=== PATIENT | male | born 1985 | race Two or more races ===

== ENCOUNTER 2021-11-06 20:55 | Inpatient (IN) | payer OTHER ==
[2021-11-06 16:11] VITALS: BMI 27.4
[2021-11-06] MEDS ORDERED: METHOCARBAMOL 500 MG TABLET PO PRN (22:23)
[2021-11-06] MEDS ORDERED: BISMUTH SUBSALICYLATE 524 MG/30 ML PO PRN (22:23)
[2021-11-06] MEDS ORDERED: MAG HYDROX/AL HYDROX/SIMETH 30 ML UNIT-DOSE CUP PO PRN (22:23)
[2021-11-06] MEDS ORDERED: ONDANSETRON *ODT* 4 MG TABLET SL PRN (22:23)
[2021-11-06] MEDS ORDERED: MENTHOL/PHENOL 1 EACH UD MM PRN (22:23)
[2021-11-06] MEDS ORDERED: NICOTINE 10 MG CARTRIDGE (INHALER) IH PRN (22:23)
[2021-11-06] MEDS ORDERED: MAGNESIUM HYDROX 2400MG/30ML ORAL SUSPENSION 30 ML CUP PO PRN (22:23)
[2021-11-06] MEDS ORDERED: ACETAMINOPHEN 325 MG TABLET (FP) PO PRN ×2 (22:23)
[2021-11-06] MEDS ORDERED: IBUPROFEN 400 MG TABLET (FP) PO PRN (22:23)
[2021-11-06] MEDS ORDERED: LOPERAMIDE HCL 2 MG CAPSULE PO PRN (22:23)
[2021-11-06] MEDS ORDERED: MAGNESIUM CITRATE 300 ML BOTTLE PO PRN (22:23)
[2021-11-06] MEDS ORDERED: chlordiazePOXIDE HCL 25 MG CAPSULE PO PRN (22:25)
[2021-11-06] MEDS ORDERED: chlordiazePOXIDE HCL 25 MG CAPSULE ONE (22:31)
[2021-11-06] MEDS ORDERED: hydrOXYzine PAMOATE 25 MG CAPSULE (FP) PO ONE (22:32)
[2021-11-06] MEDS: hydrOXYzine PAMOATE 25 MG CAPSULE (FP) PO PRN (22:36)
[2021-11-06] MEDS: chlordiazePOXIDE HCL 25 MG CAPSULE PO SCH (22:36)
[2021-11-07] MEDS: chlordiazePOXIDE HCL 25 MG CAPSULE PO SCH ×4 (05:06→22:27)
[2021-11-07] MEDS: PRENATAL VITAMINS W/ FOLIC ACID TABLET (FP) PO SCH (10:14)
[2021-11-07 14:35] LABS: HEMATOCRIT 38.5 % (35.4-49); HEMOGLOBIN 13.2 GM/dL (11.7-16.9); MCHC 34.2 g/dl (32.0-35.9); MEAN CELL VOLUME 93.6 fl (80-96); MEAN PLT VOLUME 8.5 fl (7.5-11.1); PLATELET COUNT 249 10^3/uL (134-434); RBC 4.11 M/mm3 (4.00-5.60); RDW 13.1 % (11.9-15.9); WHITE BLOOD COUNT 7.3 K/mm3 (4.0-10.0)
[2021-11-07 14:49] LABS: CALCIUM 9.5 mg/dL (8.5-10.1)
[2021-11-07 14:50] LABS: ALBUMIN 3.9 g/dl (3.4-5.0); BLOOD UREA NITROGEN 8.6 mg/dL (7-18)
[2021-11-07 14:53] LABS: CREATININE 1.1 mg/dL (0.55-1.3)
[2021-11-07 14:54] LABS: BILIRUBIN,TOTAL 0.7 mg/dL (0.2-1)
[2021-11-07] MEDS: MELATONIN 5 MG TABLETS PO SCH (22:27)
[2021-11-07] MEDS: THIAMINE HCL 100 MG TABLET (FP) PO SCH (22:27)
[2021-11-08] MEDS: chlordiazePOXIDE HCL 25 MG CAPSULE PO SCH ×4 (05:33→22:13)
[2021-11-08] MEDS: PRENATAL VITAMINS W/ FOLIC ACID TABLET (FP) PO SCH (10:18)
[2021-11-08] MEDS: MELATONIN 5 MG TABLETS PO SCH (22:13)
[2021-11-08] MEDS: THIAMINE HCL 100 MG TABLET (FP) PO SCH (22:13)
[2021-11-09] MEDS ORDERED: chlordiazePOXIDE HCL 10 MG CAPSULE PO PRN
[2021-11-09] MEDS: chlordiazePOXIDE HCL 10 MG CAPSULE PO SCH ×4 (05:18→22:21)
[2021-11-09] MEDS: PRENATAL VITAMINS W/ FOLIC ACID TABLET (FP) PO SCH (10:06)
[2021-11-09] MEDS: MELATONIN 5 MG TABLETS PO SCH (22:21)
[2021-11-09] MEDS: THIAMINE HCL 100 MG TABLET (FP) PO SCH (22:21)
[2021-11-09] MEDS: hydrOXYzine PAMOATE 25 MG CAPSULE (FP) PO PRN (22:23)
[2021-11-10] MEDS: chlordiazePOXIDE HCL 10 MG CAPSULE PO SCH ×2 (05:22→17:46)
[2021-11-10] MEDS: PRENATAL VITAMINS W/ FOLIC ACID TABLET (FP) PO SCH (10:15)
[2021-11-10] MEDS: TOLNAFTATE 1% CREAM 15 GM TUBE TP SCH ×2 (10:17→22:21)
[2021-11-10] MEDS: MELATONIN 5 MG TABLETS PO SCH (22:21)
[2021-11-10] MEDS: THIAMINE HCL 100 MG TABLET (FP) PO SCH (22:21)
[2021-11-10] MEDS: hydrOXYzine PAMOATE 25 MG CAPSULE (FP) PO PRN (22:22)
[2021-11-11] MEDS ORDERED: chlordiazePOXIDE HCL 10 MG CAPSULE PO ONE (05:00)
[2021-11-11 09:33] VITALS: BP 130/80; PULSE 91; TEMP 97.8
[2021-11-11] MEDS: PRENATAL VITAMINS W/ FOLIC ACID TABLET (FP) PO SCH (10:08)
[2021-11-11] MEDS: TOLNAFTATE 1% CREAM 15 GM TUBE TP SCH (10:08)
== END 2021-11-11 10:31 | disposition home or self-care (01) | DRG 774 ==
LOC: YASAS 20:55 → Y3N 22:46
PROVIDERS: ADMIT Allergy & Immunology; ATTEND Allergy & Immunology
PROC: HZ2ZZZZ Detoxification Services for Substance Abuse Treatment (ICD-10-PCS; principal; 2021-11-06)
DX: F10.230 Alcohol dependence with withdrawal, uncomplicated (principal); F14.20 Cocaine dependence, uncomplicated; F17.210 Nicotine dependence, cigarettes, uncomplicated
CPT/HCPCS: 36415; 71045-TC-FY; 80053; 85027; 86780; C9803-CS; U0003; U0005

== ENCOUNTER 2022-11-16 13:08 | Inpatient (IN) | payer OTHER ==
[2022-11-16 13:35] VITALS: BMI 26.8
[2022-11-16] MEDS ORDERED: LOPERAMIDE HCL 2 MG CAPSULE PO PRN (15:32)
[2022-11-16] MEDS ORDERED: BENZOCAINE/MENTHOL (CHLORASEPTIC ) LOZENGE MM PRN (15:32)
[2022-11-16] MEDS ORDERED: BENZONATATE 200 MG CAPSULE PO PRN (15:32)
[2022-11-16] MEDS ORDERED: ONDANSETRON *ODT* 4 MG TABLET SL PRN (15:32)
[2022-11-16] MEDS ORDERED: BISMUTH SUBSALICYLATE 262 MG/15 ML BTL PO PRN (15:32)
[2022-11-16] MEDS ORDERED: IBUPROFEN 400 MG TABLET (FP) PO PRN (15:32)
[2022-11-16] MEDS ORDERED: NALOXONE HCL 0.4 MG/ML VIAL IM PRN (15:32)
[2022-11-16] MEDS ORDERED: DICYCLOMINE HCL 10 MG CAPSULE PO PRN (15:32)
[2022-11-16] MEDS ORDERED: POLYETHYLENE GLYCOL (HEALTHYLAX) 3350 17 GM PACKET PO PRN (15:32)
[2022-11-16] MEDS ORDERED: MAG HYDROX/AL HYDROX/SIMETH 30 ML UNIT-DOSE CUP PO PRN (15:32)
[2022-11-16] MEDS ORDERED: ACETAMINOPHEN 325 MG TABLET (FP) PO PRN (15:32)
[2022-11-16] MEDS ORDERED: NALOXONE HCL (KLOXXADO) 8 MG SPRAY NS PRN (15:32)
[2022-11-16] MEDS ORDERED: P-EPHED 60MG/TRIPROLIDI 2.5MG TABLET PO PRN (15:32)
[2022-11-16] MEDS ORDERED: MAGNESIUM HYDROX 2400MG/30ML ORAL SUSPENSION 30 ML CUP PO PRN (15:32)
[2022-11-16] MEDS ORDERED: IBUPROFEN 600 MG TABLET (FP) PO PRN (15:32)
[2022-11-16] MEDS ORDERED: guaiFENesin 600 MG TABLET.ER (FP) PO PRN (15:32)
[2022-11-16] MEDS ORDERED: chlordiazePOXIDE HCL 25 MG CAPSULE PO ONE (15:34)
[2022-11-16] MEDS ORDERED: chlordiazePOXIDE HCL 25 MG CAPSULE PO PRN (15:34)
[2022-11-16] MEDS ORDERED: propRANOLol HCL 10 MG TABLET PO ONE (15:36)
[2022-11-16] MEDS ORDERED: chlordiazePOXIDE HCL 25 MG CAPSULE ONE (15:41)
[2022-11-16] MEDS: METHOCARBAMOL 500 MG TABLET PO PRN (17:43)
[2022-11-16] MEDS: chlordiazePOXIDE HCL 25 MG CAPSULE PO SCH ×2 (17:47→22:19)
[2022-11-16] MEDS ORDERED: cloNIDine HCL 0.1 MG TABLET PO ONE (20:50)
[2022-11-16] MEDS: THIAMINE HCL 100 MG TABLET (FP) PO SCH (22:19)
[2022-11-16] MEDS: MELATONIN 5 MG TABLETS PO PRN (22:19)
[2022-11-17] MEDS: chlordiazePOXIDE HCL 25 MG CAPSULE PO SCH ×4 (05:14→22:13)
[2022-11-17] MEDS: PRENATAL VITAMINS W/ FOLIC ACID TABLET (FP) PO SCH (10:16)
[2022-11-17 11:11] LABS: HEMATOCRIT 42.6 % (35.4-49); HEMOGLOBIN 15.1 GM/dL (11.7-16.9); MCH 31.9 pg (25.7-33.7); MCHC 35.3 g/dl (32.0-35.9); MEAN CELL VOLUME 90.2 fl (80-96); MEAN PLT VOLUME 7.7 fl (7.5-11.1); PLATELET COUNT 292 10^3/uL (134-434); RBC 4.72 M/mm3 (4.00-5.60); RDW 12.7 % (11.9-15.9); WHITE BLOOD COUNT 9.4 K/mm3 (4.0-10.0)
[2022-11-17 11:14] LABS: BLOOD UREA NITROGEN 14.3 mg/dL (7-18)
[2022-11-17 11:20] LABS: ALBUMIN 3.6 g/dl (3.4-5.0); BILIRUBIN,TOTAL 1.4 mg/dL (0.2-1); TOT PROT 7.3 g/dl (6.4-8.2)
[2022-11-17] MEDS: METHOCARBAMOL 500 MG TABLET PO PRN (12:41)
[2022-11-17] MEDS: MELATONIN 5 MG TABLETS PO PRN (22:15)
[2022-11-17] MEDS: THIAMINE HCL 100 MG TABLET (FP) PO SCH (22:15)
[2022-11-18] MEDS: chlordiazePOXIDE HCL 25 MG CAPSULE PO SCH ×4 (05:26→22:07)
[2022-11-18] MEDS: PRENATAL VITAMINS W/ FOLIC ACID TABLET (FP) PO SCH (10:11)
[2022-11-18 11:43] LABS: CALCIUM 9.2 mg/dL (8.5-10.1)
[2022-11-18 11:47] LABS: CREATININE 0.9 mg/dL (0.55-1.3)
[2022-11-18] MEDS: LACTULOSE 20 GM/30 ML UDC (FOR ORAL USE ONLY) PO SCH ×2 (14:37→22:09)
[2022-11-18] MEDS: METHOCARBAMOL 500 MG TABLET PO PRN (22:07)
[2022-11-18] MEDS: THIAMINE HCL 100 MG TABLET (FP) PO SCH (22:07)
[2022-11-18] MEDS: MELATONIN 5 MG TABLETS PO PRN (22:07)
[2022-11-19] MEDS ORDERED: chlordiazePOXIDE HCL 10 MG CAPSULE PO PRN
[2022-11-19] MEDS: LACTULOSE 20 GM/30 ML UDC (FOR ORAL USE ONLY) PO SCH (05:23)
[2022-11-19] MEDS: chlordiazePOXIDE HCL 10 MG CAPSULE PO SCH ×2 (05:23→10:06)
[2022-11-19] MEDS: PRENATAL VITAMINS W/ FOLIC ACID TABLET (FP) PO SCH (10:06)
[2022-11-19 13:10] VITALS: BP 128/83; PULSE 93; RESP 19; TEMP 98.9
[2022-11-20] MEDS ORDERED: chlordiazePOXIDE HCL 10 MG CAPSULE PO SCH (05:00)
[2022-11-21] MEDS ORDERED: chlordiazePOXIDE HCL 10 MG CAPSULE PO ONE (05:00)
== END 2022-11-19 13:54 | disposition left against medical advice (07) | DRG 770 ==
LOC: YASAS 13:08 → Y3N 16:16
PROVIDERS: ADMIT Allergy & Immunology; ATTEND Surgery
PROC: HZ2ZZZZ Detoxification Services for Substance Abuse Treatment (ICD-10-PCS; principal; 2022-11-16)
DX: F10.230 Alcohol dependence with withdrawal, uncomplicated (principal); F14.20 Cocaine dependence, uncomplicated; F17.210 Nicotine dependence, cigarettes, uncomplicated; G47.00 Insomnia, unspecified; R79.89 Other specified abnormal findings of blood chemistry; Z28.310 Unvaccinated for COVID-19; Z28.9 Immunization not carried out for unspecified reason
CPT/HCPCS: 36415; 80048; 80053; 82140; 82247; 83036; 85027; 86780; C9803-CS; U0003; U0005

== ENCOUNTER 2023-11-09 14:18 | Inpatient (IN) | payer OTHER ==
[2023-11-09 15:50] VITALS: BMI 28.0
[2023-11-09] MEDS ORDERED: MAGNESIUM HYDROX 2400MG/30ML ORAL SUSPENSION 30 ML CUP PO PRN (17:30)
[2023-11-09] MEDS ORDERED: BENZOCAINE/MENTHOL (CHLORASEPTIC ) LOZENGE MM PRN (17:30)
[2023-11-09] MEDS ORDERED: LOPERAMIDE HCL 2 MG CAPSULE PO PRN (17:30)
[2023-11-09] MEDS ORDERED: ACETAMINOPHEN 325 MG TABLET (FP) PO PRN (17:30)
[2023-11-09] MEDS ORDERED: POLYETHYLENE GLYCOL (HEALTHYLAX) 3350 17 GM PACKET PO PRN (17:30)
[2023-11-09] MEDS ORDERED: guaiFENesin 600 MG TABLET.ER (FP) PO PRN (17:30)
[2023-11-09] MEDS ORDERED: ONDANSETRON *ODT* 4 MG TABLET SL PRN (17:30)
[2023-11-09] MEDS ORDERED: MAG HYDROX/AL HYDROX/SIMETH 30 ML UNIT-DOSE CUP PO PRN (17:30)
[2023-11-09] MEDS ORDERED: IBUPROFEN 600 MG TABLET (FP) PO PRN (17:30)
[2023-11-09] MEDS ORDERED: BISMUTH SUBSALICYLATE 524 MG/30 ML PO PRN (17:30)
[2023-11-09] MEDS ORDERED: BENZONATATE 200 MG CAPSULE PO PRN (17:30)
[2023-11-09] MEDS ORDERED: DICYCLOMINE HCL 10 MG CAPSULE PO PRN (17:30)
[2023-11-09] MEDS ORDERED: IBUPROFEN 400 MG TABLET (FP) PO PRN (17:30)
[2023-11-09] MEDS ORDERED: chlordiazePOXIDE HCL 25 MG CAPSULE ONE (17:44)
[2023-11-09] MEDS ORDERED: METOPROLOL TARTRATE 25 MG TABLET (FP) ONE (17:44)
[2023-11-09] MEDS: METOPROLOL TARTRATE 25 MG TABLET (FP) PO ONE (17:49)
[2023-11-09] MEDS: chlordiazePOXIDE HCL 25 MG CAPSULE PO SCH (17:49)
[2023-11-09] MEDS: hydrOXYzine PAMOATE 25 MG CAPSULE (FP) PO PRN (19:07)
[2023-11-09] MEDS: THIAMINE HCL 100 MG TABLET (FP) PO SCH (22:43)
[2023-11-09] MEDS: MELATONIN 5 MG TABLETS PO SCH (22:43)
[2023-11-09] MEDS: traZODone HCL 50 MG TABLET (FP) PO ONE (22:44)
[2023-11-10] MEDS: chlordiazePOXIDE HCL 25 MG CAPSULE PO PRN (02:54)
[2023-11-10] MEDS: PRENATAL VITAMINS W/ FOLIC ACID TABLET (FP) PO SCH (10:04)
[2023-11-10 11:33] LABS: HEMATOCRIT 41.2 % (35.4-49); HEMOGLOBIN 14.1 GM/dL (11.7-16.9); MCH 31.9 pg (25.7-33.7); MCHC 34.2 g/dl (32.0-35.9); MEAN CELL VOLUME 93.3 fl (80-96); MEAN PLT VOLUME 7.7 fl (7.5-11.1); PLATELET COUNT 275 10^3/uL (134-434); RBC 4.41 M/mm3 (4.00-5.60); RDW 13.4 % (11.9-15.9); WHITE BLOOD COUNT 5.2 K/mm3 (4.0-10.0)
[2023-11-10 11:48] LABS: POTASSIUM 3.9 mmol/L (3.5-5.1)
[2023-11-10 11:52] LABS: CALCIUM 9.4 mg/dL (8.5-10.1)
[2023-11-10 11:53] LABS: ALBUMIN 3.3 g/dl (3.4-5.0)
[2023-11-10 11:57] LABS: BILIRUBIN,TOTAL 0.3 mg/dL (0.2-1); TOT PROT 6.5 g/dl (6.4-8.2)
[2023-11-11] MEDS: METHOCARBAMOL 500 MG TABLET PO PRN (05:33)
[2023-11-11] MEDS: chlordiazePOXIDE HCL 25 MG CAPSULE PO SCH (05:33)
[2023-11-11] MEDS: amLODIPine BESYLATE 10 MG TABLET (FP) PO SCH (10:40)
[2023-11-11] MEDS: cloNIDine HCL 0.1 MG TABLET PO PRN (22:30)
[2023-11-12] MEDS ORDERED: chlordiazePOXIDE HCL 10 MG CAPSULE PO PRN
[2023-11-12] MEDS: chlordiazePOXIDE HCL 10 MG CAPSULE PO SCH (05:15)
[2023-11-13] MEDS: chlordiazePOXIDE HCL 10 MG CAPSULE PO SCH (05:40)
[2023-11-14] MEDS: chlordiazePOXIDE HCL 10 MG CAPSULE PO ONE (05:39)
[2023-11-14 09:42] VITALS: BP 138/99; PULSE 99; RESP 18; TEMP 98
== END 2023-11-14 11:18 | disposition home or self-care (01) | DRG 774 ==
LOC: YASAS 14:18 → Y6N 18:21
PROVIDERS: ADMIT Allergy & Immunology; ATTEND Surgery
PROC: HZ2ZZZZ Detoxification Services for Substance Abuse Treatment (ICD-10-PCS; principal; 2023-11-10)
DX: F10.230 Alcohol dependence with withdrawal, uncomplicated (principal); F14.20 Cocaine dependence, uncomplicated; F17.210 Nicotine dependence, cigarettes, uncomplicated; F32.A Depression, unspecified; I10 Essential (primary) hypertension
CPT/HCPCS: 36415; 80053; 80305; 82962; 85027; 86780; 87635

== ENCOUNTER 2024-02-04 14:59 | Inpatient (IN) | payer OTHER ==
[2024-02-04 16:44] VITALS: BMI 29.8
[2024-02-04] MEDS ORDERED: DICYCLOMINE HCL 10 MG CAPSULE PO PRN (18:53)
[2024-02-04] MEDS ORDERED: ACETAMINOPHEN 325 MG TABLET (FP) PO PRN (18:53)
[2024-02-04] MEDS ORDERED: NICOTINE POLACRILEX 2 MG GUM BUC PRN (18:53)
[2024-02-04] MEDS ORDERED: guaiFENesin 600 MG TABLET.ER (FP) PO PRN (18:53)
[2024-02-04] MEDS ORDERED: BISMUTH SUBSALICYLATE 524 MG/30 ML PO PRN (18:53)
[2024-02-04] MEDS ORDERED: NICOTINE POLACRILEX 2 MG LOZENGE BC PRN (18:53)
[2024-02-04] MEDS ORDERED: LOPERAMIDE HCL 2 MG CAPSULE PO PRN (18:53)
[2024-02-04] MEDS ORDERED: ONDANSETRON *ODT* 4 MG TABLET SL PRN (18:53)
[2024-02-04] MEDS ORDERED: IBUPROFEN 600 MG TABLET (FP) PO PRN (18:53)
[2024-02-04] MEDS ORDERED: IBUPROFEN 400 MG TABLET (FP) PO PRN (18:53)
[2024-02-04] MEDS ORDERED: BENZOCAINE/MENTHOL (CHLORASEPTIC ) LOZENGE MM PRN (18:53)
[2024-02-04] MEDS ORDERED: P-EPHED 60MG/TRIPROLIDI 2.5MG TABLET PO PRN (18:53)
[2024-02-04] MEDS ORDERED: POLYETHYLENE GLYCOL (HEALTHYLAX) 3350 17 GM PACKET PO PRN (18:53)
[2024-02-04] MEDS ORDERED: BENZONATATE 200 MG CAPSULE PO PRN (18:53)
[2024-02-04] MEDS ORDERED: MAG HYDROX/AL HYDROX/SIMETH 30 ML UNIT-DOSE CUP PO PRN (18:53)
[2024-02-04] MEDS ORDERED: MAGNESIUM HYDROX 2400MG/30ML ORAL SUSPENSION 30 ML CUP PO PRN (18:53)
[2024-02-04] MEDS ORDERED: METOPROLOL TARTRATE 25 MG TABLET (FP) ONE (20:24)
[2024-02-04] MEDS: METOPROLOL TARTRATE 25 MG TABLET (FP) PO SCH (20:26)
[2024-02-04] MEDS: MELATONIN 5 MG TABLETS PO SCH (22:31)
[2024-02-04] MEDS: THIAMINE 100 MG TABLET PO SCH (22:31)
[2024-02-04] MEDS: diazePAM 5 MG TABLET PO SCH (22:32)
[2024-02-04] MEDS: hydrOXYzine PAMOATE 25 MG CAPSULE (FP) PO PRN (22:32)
[2024-02-05] MEDS: METHOCARBAMOL 500 MG TABLET PO PRN (07:47)
[2024-02-05] MEDS: PRENATAL VITAMINS W/ FOLIC ACID TABLET (FP) PO SCH (10:21)
[2024-02-05 12:49] LABS: HEMATOCRIT 42.1 % (35.4-49); HEMOGLOBIN 14.7 GM/dL (11.7-16.9); MCH 31.2 pg (25.7-33.7); MCHC 34.8 g/dl (32.0-35.9); MEAN CELL VOLUME 89.8 fl (80-96); MEAN PLT VOLUME 7.5 fl (7.5-11.1); PLATELET COUNT 272 10^3/uL (134-434); RBC 4.69 M/mm3 (4.00-5.60); RDW 12.5 % (11.9-15.9); WHITE BLOOD COUNT 7.9 K/mm3 (4.0-10.0)
[2024-02-05 14:10] LABS: POTASSIUM 3.9 mmol/L (3.5-5.1)
[2024-02-05 14:16] LABS: CALCIUM 8.8 mg/dL (8.5-10.1)
[2024-02-05 14:17] LABS: ALBUMIN 3.4 g/dl (3.4-5.0); BLOOD UREA NITROGEN 8.4 mg/dL (7-18)
[2024-02-05 14:21] LABS: BILIRUBIN,TOTAL 0.6 mg/dL (0.2-1)
[2024-02-05 14:22] LABS: TOT PROT 6.4 g/dl (6.4-8.2)
[2024-02-05 14:28] LABS: CREATININE 0.9 mg/dL (0.55-1.3)
[2024-02-06] MEDS: diazePAM 5 MG TABLET PO SCH (05:49)
[2024-02-07] MEDS: diazePAM 5 MG TABLET PO SCH (05:51)
[2024-02-07] MEDS: diazePAM 5 MG TABLET PO PRN (09:56)
[2024-02-07 16:51] VITALS: RESP 18
[2024-02-08 06:13] VITALS: BP 141/89; PULSE 84; TEMP 97.6
[2024-02-08] MEDS: diazePAM 5 MG TABLET PO ONE (06:33)
== END 2024-02-08 10:20 | disposition home or self-care (01) | DRG 774 ==
LOC: YASAS 14:59 → Y3N 20:34
PROVIDERS: ADMIT Allergy & Immunology; ATTEND Surgery
PROC: HZ2ZZZZ Detoxification Services for Substance Abuse Treatment (ICD-10-PCS; principal; 2024-02-04)
DX: F10.230 Alcohol dependence with withdrawal, uncomplicated (principal); F14.20 Cocaine dependence, uncomplicated; F17.210 Nicotine dependence, cigarettes, uncomplicated; F32.A Depression, unspecified; I10 Essential (primary) hypertension
CPT/HCPCS: 36415; 80053; 80305; 80307; 85027; 86780; 93005; 93010

== ENCOUNTER 2024-11-26 13:35 | Inpatient (IN) | payer OTHER ==
[2024-11-26 13:56] VITALS: BMI 31.6
[2024-11-26] MEDS ORDERED: NICOTINE POLACRILEX 2 MG GUM BUC PRN (14:11)
[2024-11-26] MEDS ORDERED: POLYETHYLENE GLYCOL (HEALTHYLAX) 3350 17 GM PACKET PO PRN (14:11)
[2024-11-26] MEDS ORDERED: LOPERAMIDE HCL 2 MG CAPSULE PO PRN (14:11)
[2024-11-26] MEDS ORDERED: BISMUTH SUBSALICYLATE 524 MG/30 ML PO PRN (14:11)
[2024-11-26] MEDS ORDERED: NICOTINE POLACRILEX 2 MG LOZENGE BC PRN (14:11)
[2024-11-26] MEDS ORDERED: MAG HYDROX/AL HYDROX/SIMETH 30 ML UNIT-DOSE CUP PO PRN (14:11)
[2024-11-26] MEDS ORDERED: BENZONATATE 200 MG CAPSULE PO PRN (14:11)
[2024-11-26] MEDS ORDERED: ONDANSETRON *ODT* 4 MG TABLET SL PRN (14:11)
[2024-11-26] MEDS ORDERED: guaiFENesin 600 MG TABLET.ER (FP) PO PRN (14:11)
[2024-11-26] MEDS ORDERED: DICYCLOMINE HCL 10 MG CAPSULE PO PRN (14:11)
[2024-11-26] MEDS ORDERED: BENZOCAINE/MENTHOL (CHLORASEPTIC ) LOZENGE MM PRN (14:11)
[2024-11-26] MEDS ORDERED: ACETAMINOPHEN 325 MG TABLET (FP) PO PRN (14:11)
[2024-11-26] MEDS ORDERED: MAGNESIUM HYDROX 2400MG/30ML ORAL SUSPENSION 30 ML CUP PO PRN (14:11)
[2024-11-26] MEDS ORDERED: NALOXONE (NARCAN) HCL 4 MG/0.1 ML SPRAY NS PRN (14:11)
[2024-11-26] MEDS ORDERED: IBUPROFEN 400 MG TABLET (FP) PO PRN (14:11)
[2024-11-26] MEDS ORDERED: METOPROLOL TARTRATE 25 MG TABLET (FP) ONE (14:21)
[2024-11-26] MEDS: METOPROLOL TARTRATE 25 MG TABLET (FP) PO ONE (14:22)
[2024-11-26] MEDS: hydrOXYzine PAMOATE 25 MG CAPSULE (FP) PO PRN (14:42)
[2024-11-26] MEDS: METHOCARBAMOL 500 MG TABLET PO PRN (14:42)
[2024-11-26] MEDS: MELATONIN 5 MG TABLETS PO SCH (21:27)
[2024-11-26] MEDS: THIAMINE 100 MG TABLET PO SCH (21:27)
[2024-11-26] MEDS: IBUPROFEN 600 MG TABLET (FP) PO PRN (21:28)
[2024-11-27] MEDS: diazePAM 5 MG TABLET PO SCH (10:07)
[2024-11-27] MEDS: PRENATAL VITAMINS W/ FOLIC ACID TABLET (FP) PO SCH (10:08)
[2024-11-27 11:02] LABS: HEMATOCRIT 44.1 % (40.1-51.0); HEMOGLOBIN 14.6 g/dL (13.7-17.5); MCHC 33.1 g/dl (32.3-36.5); MEAN PLT VOLUME 9.3 fl (9.4-12.4); PLATELET COUNT 323 x10^3/uL (163-337); RDW 13.1 % (12.1-15.9)
[2024-11-27 11:10] LABS: CHLORIDE 101 mmol/L (98-107); POTASSIUM 3.8 mmol/L (3.5-5.1); SODIUM 136 mmol/L (136-145)
[2024-11-27 11:19] LABS: ANION GAP 7 mmol/L (4-13); BLOOD UREA NITROGEN 10.2 mg/dL (7-18); CALCIUM 8.6 mg/dL (8.5-10.1); CO2 28 mmol/L (21-32); GLUCOSE,RANDOM 98 mg/dL (74-106)
[2024-11-27 11:20] LABS: ALBUMIN 3.5 g/dl (3.4-5.0)
[2024-11-27 11:23] LABS: SGOT/AST 42 U/L (15-37); SGPT/ALT 59 U/L (13-61)
[2024-11-27 11:24] LABS: BILIRUBIN,TOTAL 1.2 mg/dL (0.2-1); TOT PROT 6.6 g/dl (6.4-8.2)
[2024-11-27 11:26] LABS: ALK PHOS 96 U/L (45-117)
[2024-11-27] MEDS: diazePAM 5 MG TABLET PO PRN (14:05)
[2024-11-29] MEDS: diazePAM 5 MG TABLET PO SCH (05:39)
[2024-11-30] MEDS: diazePAM 5 MG TABLET PO SCH (05:50)
[2024-12-01] MEDS: diazePAM 5 MG TABLET PO ONE (06:08)
[2024-12-01 06:14] VITALS: RESP 16
[2024-12-01 09:04] VITALS: BP 124/97; PULSE 90; TEMP 97.6
== END 2024-12-01 09:20 | disposition other institution (70) | DRG 774 ==
LOC: YASAS 13:35 → Y3N 14:17
PROVIDERS: ADMIT Neuromusculoskeletal Medicine & OMM; ATTEND Allergy & Immunology
PROC: HZ2ZZZZ Detoxification Services for Substance Abuse Treatment (ICD-10-PCS; principal; 2024-11-26)
DX: F10.230 Alcohol dependence with withdrawal, uncomplicated (principal); F14.20 Cocaine dependence, uncomplicated; F17.210 Nicotine dependence, cigarettes, uncomplicated; F32.A Depression, unspecified; I10 Essential (primary) hypertension
CPT/HCPCS: 36415; 71046-TC-FY; 80053; 80305; 80307; 85027; 86780